=== PATIENT | male | born 1970 | race Caucasian/White ===

== ENCOUNTER 2016-08-25 16:18 | Emergency (ER) | payer OTHER ==
[~2016-08-25] VITALS: Ht 175.3 cm; Wt 83.9 kg
[2016-08-25 16:43] VITALS: BP 120/89
[2016-08-25] MEDS ORDERED: ALPRAZOLAM 0.5 MG TABLET ONE (17:28)
[2016-08-25] MEDS ORDERED: ALPRAZOLAM 0.5 MG TABLET PO ONE (17:30)
[2016-08-26] MEDS ORDERED: LEVE500T9 PO (10:41)
[2016-08-26] MEDS ORDERED: ALPR0.25 PO (10:41)
== END 2016-08-25 17:36 | disposition home or self-care (01) ==
LOC: ER 16:23
DX: F41.9 Anxiety disorder, unspecified (principal); G89.29 Other chronic pain; F20.9 Schizophrenia, unspecified
CPT/HCPCS: 99282; A4606; Z7610

== ENCOUNTER 2016-08-26 10:08 | Emergency (ER) | payer MEDICAID, MEDICARE, OTHER ==
[~2016-08-26] VITALS: Ht 175.3 cm; Wt 83.9 kg
[2016-08-26 10:08] VITALS: BP 103/74
[2016-08-26] MEDS ORDERED: LEVE500T9 PO (10:41)
[2016-08-26] MEDS ORDERED: ALPR0.25 PO (10:41)
[2016-08-26] MEDS ORDERED: ALPRAZOLAM 0.5 MG TABLET PO ONE (11:00)
== END 2016-08-26 10:45 | disposition home or self-care (01) ==
LOC: ER 10:11
DX: Z76.0 Encounter for issue of repeat prescription (principal); Z76.5 Malingerer [conscious simulation]; F20.9 Schizophrenia, unspecified; G89.29 Other chronic pain; M79.604 Pain in right leg; F12.10 Cannabis abuse, uncomplicated; Z98.890 Other specified postprocedural states
CPT/HCPCS: 99283; A4606; Z7610

== ENCOUNTER 2016-10-30 18:01 | Emergency (ER) | payer MEDICAID, OTHER ==
[~2016-10-30] VITALS: Ht 172.7 cm; Wt 102.1 kg
[~2016-10-30 18:01] MED LIST: ALPR0.25 PO; LEVE500T9 PO
[2016-10-30 18:05] VITALS: BP 139/88
--- NOTE | 2016-10-30 20:39 | NUR ---
INFORMED BY SECURITY "PT LEFT"
== END 2016-10-30 20:40 | disposition left against medical advice (07) ==
LOC: ER 18:02
DX: Z53.21 Procedure and treatment not carried out due to patient leaving prior to being seen by health care provider (principal)
CPT/HCPCS: A4606; Z7610

== ENCOUNTER 2018-01-16 22:55 | Emergency (ER) | payer OTHER ==
[~2018-01-16] VITALS: Ht 175.3 cm; Wt 103.0 kg
[2018-01-16 23:00] VITALS: BP 147/118
== END 2018-01-16 23:18 | disposition home or self-care (01) ==
LOC: ER 22:58
DX: F41.1 Generalized anxiety disorder (principal); G89.29 Other chronic pain; F99 Mental disorder, not otherwise specified; R56.9 Unspecified convulsions; F20.9 Schizophrenia, unspecified; F12.10 Cannabis abuse, uncomplicated; F10.10 Alcohol abuse, uncomplicated; Y90.9 Presence of alcohol in blood, level not specified; Z76.0 Encounter for issue of repeat prescription; Z98.890 Other specified postprocedural states
CPT/HCPCS: A4606; Z7610

== ENCOUNTER 2018-08-28 02:43 | Emergency (ER) | payer OTHER ==
[~2018-08-28] VITALS: Ht 175.3 cm; Wt 81.6 kg
--- NOTE | 2018-08-28 02:53 | NUR ---
PT [id number] FROM [facility] C/O L ARM/L KNEE PAIN AND +SI/-HI NO PLAN. PT IS AAOX4,NOT IN RESPIRATORY DISTRESS, V/S STABLE, KEPT RESTED AND COMFORTABLE, WILL CONTINUE TO MONITOR.
--- NOTE | 2018-08-28 02:59 | NUR ---
URINE SPECIMEN COLLECTED AND SENT TO LAB.
[2018-08-28 03:05] LABS: APPEARANCE,URINE Clear (CLEAR); BILIRUBIN,URINE SMALL (NEGATIVE); BLOOD, URINE Trace-intact Ery/uL (NEGATIVE); COLOR,URINE Dark (YELLOW); KETONES,URINE 15 (NEGATIVE); LEUKOCYTE ESTERASE ,URINE Negative (NEGATIVE); NITRITE, URINE Negative (NEGATIVE); PROTEIN,URINE 30 mg/dl (NEGATIVE); UGLUCOSE Negative (NEGATIVE); UROBILINOGEN,URINE 0.2 EU/dL (0.2)
--- NOTE | 2018-08-28 03:08 | NUR ---
PT IS ON SI PRECAUTION.
--- NOTE | 2018-08-28 03:15 | NUR ---
DOMINGUEZ SINGH CRISIS TEAM AT BEDSIDE FOR EVAL.
[2018-08-28 03:17] LABS: BASOPHILS # (AUTO) 0.1 /CMM (0.0-0.2); BASOPHILS % (AUTO) 0.5 % (0.0-2.0); EOSINOPHILS % (AUTO) 0.3 % (0.0-6.0); HEMATOCRIT 44 % (39-51); LYMPHOCYTES # (AUTO) 2.2 /CMM (0.8-4.8); LYMPHOCYTES % (AUTO) 23.1 % (20.0-44.0); MEAN CORPUSCULAR HGB CONC 35 g/dl (31.0-36.0); MEAN CORPUSCULAR VOLUME 95 fL (80-96); MONOCYTES % (AUTO) 10.7 % (2.0-12.0); NEUTROPHILS # (AUTO) 6.3 /CMM (1.8-8.9); NEUTROPHILS % (AUTO) 65.4 % (43.0-81.0); PLATELET COUNT (AUTO) 260 /CMM (150-450); RED BLOOD CELL COUNT(AUTO) 4.58 MIL/uL (4.5-6.0); WHITE BLOOD COUNT (AUTO) 9.6 K/uL (4.3-11.0)
[2018-08-28 03:24] LABS: CALCIUM, SERUM 9.2 mg/dL (8.5-10.1); CREATININE 0.9 mg/dL (0.6-1.3); POTASSIUM 3.3 mmol/L (3.5-5.1)
[2018-08-28 03:24] LABS: BACTERIA,URINE None seen /HPF (None Seen); MUCUS,URINE Few /LPF (None Seen); RBC,URINE 0-2 /HPF (0-2); SQUAMOUS EPITHELIAL CELL,UR None Seen /HPF (None Seen); WBC,URINE NONE SEEN /HPF (0-3)
[2018-08-28 03:36] LABS: ALBUMIN 3.8 g/dL (3.4-5.0); BILIRUBIN,DIRECT 0.2 mg/dL (0.0-0.2); TOTAL PROTEIN, SERUM 7.7 g/dL (6.4-8.2)
[2018-08-28] MEDS ORDERED: POTASSIUM CHLORIDE 20 MEQ TAB.PRT.SR PO ONE ×2 (03:56→04:00)
--- NOTE | 2018-08-28 05:07 | NUR ---
Pt accepted to [facility] by Dr Issa. # for report [phone]. eta for ambulance 1-1.5 hrs
[2018-08-28] MEDS ORDERED: ONDANSETRON 4 MG TAB.RAPDIS ONE (05:15)
[2018-08-28] MEDS ORDERED: ONDANSETRON 4 MG TAB.RAPDIS SL ONE (05:30)
--- NOTE | 2018-08-28 05:43 | NUR ---
REPORT GIVEN TO SAMANTHA THOMAS FROM [facility] FOR SUSANNE.
[2018-08-28 07:22] VITALS: BP 103/57
== END 2018-08-28 07:23 ==
LOC: ER 02:45
DX: R45.851 Suicidal ideations (principal); F19.10 Other psychoactive substance abuse, uncomplicated; I10 Essential (primary) hypertension; E11.9 Type 2 diabetes mellitus without complications; F12.90 Cannabis use, unspecified, uncomplicated; G89.29 Other chronic pain; Z98.890 Other specified postprocedural states; Z79.899 Other long term (current) drug therapy
CPT/HCPCS: 36415; 80048; 80076; 80307; 81001; 85025; 99285; G0480; Q0162; 80305; 81000-TC

== ENCOUNTER 2018-09-01 20:43 | Emergency (ER) | payer OTHER ==
[~2018-09-01] VITALS: Ht 175.3 cm; Wt 90.7 kg
--- NOTE | 2018-09-01 21:20 | NUR ---
Note undone in EDM - 09/01/18 at 2123 by LIDIA NIC WALKED IN TO ER. AAOX4. NAD NOTED, BREATHING EVEN AND UNLABORED. AMBULATORY. CAME IN FOR SUICIDAL IDEATION, PT REPORT FEELING OF HOPELESSNESS AND DEPRESSED. PT VERBALIZES THAT HE DOES NOT WANT TO LIVE ANYMORE BY SHOOTING HIMSELF BUT NO ONE WOULD SELL HIM A GUN. DENIES HALLUCINATIONS. DENIES HI. PT STRIPPED OFF CLOTHING AND BELONGINS AND PLACED IN THE UTILITY ROOM BY THE MD DESK. PT WANDED BY SECURITY. ONE ON ONE SITTER AT BEDSIDE PART OF SUICIE PRECAUTION. AT BEDSIDE FOR EVAL
--- NOTE | 2018-09-01 21:23 | NUR ---
NIC WALKED IN TO ER. AAOX4. NAD NOTED, BREATHING EVEN AND UNLABORED. AMBULATORY. CAME IN FOR SUICIDAL IDEATION, PT REPORT FEELING OF HOPELESSNESS AND DEPRESSED. PT VERBALIZES THAT HE DOES NOT WANT TO LIVE ANYMORE BY SHOOTING HIMSELF BUT NO ONE WOULD SELL HIM A GUN. DENIES HALLUCINATIONS. DENIES HI. PT STRIPPED OFF CLOTHING AND BELONGINS AND PLACED IN THE UTILITY ROOM BY THE MD DESK. PT WANDED BY SECURITY. ONE ON ONE SITTER AT BEDSIDE PART OF SUICIE PRECAUTION. AT BEDSIDE FOR EVAL
[2018-09-01 21:26] LABS: BASOPHILS % (AUTO) 0.2 % (0.0-2.0); EOSINOPHILS % (AUTO) 0.8 % (0.0-6.0); HEMATOCRIT 40 % (39-51); HEMOGLOBIN 13.6 g/dL (13.5-17.5); LYMPHOCYTES # (AUTO) 1.8 /CMM (0.8-4.8); MEAN CORPUSCULAR HGB CONC 34 g/dl (31.0-36.0); MEAN CORPUSCULAR VOLUME 97 fL (80-96); MONOCYTES # (AUTO) 0.4 /CMM (0.1-1.30); MONOCYTES % (AUTO) 8.1 % (2.0-12.0); NEUTROPHILS # (AUTO) 3.2 /CMM (1.8-8.9); NEUTROPHILS % (AUTO) 57.9 % (43.0-81.0); PLATELET COUNT (AUTO) 190 /CMM (150-450); RED BLOOD CELL COUNT(AUTO) 4.09 MIL/uL (4.5-6.0); WHITE BLOOD COUNT (AUTO) 5.4 K/uL (4.3-11.0)
--- NOTE | 2018-09-01 21:35 | NUR ---
PROVIDED WITH FOOD
[2018-09-01 21:38] LABS: CALCIUM, SERUM 8.8 mg/dL (8.5-10.1); CARBON DIOXIDE 27 mmol/L (21-32); CHLORIDE 100 mmol/L (98-107); CREATININE 0.8 mg/dL (0.6-1.3); GLUCOSE 110 mg/dL (74-106); POTASSIUM 4.4 mmol/L (3.5-5.1); SODIUM SERUM 137 mmol/L (136-145); UREA NITROGEN, BLOOD 6 mg/dL (7-18)
[2018-09-01 21:50] LABS: APPEARANCE,URINE Clear (CLEAR); BILIRUBIN,URINE Negative (NEGATIVE); BLOOD, URINE Negative Ery/uL (NEGATIVE); COLOR,URINE Yellow (YELLOW); KETONES,URINE Negative (NEGATIVE); LEUKOCYTE ESTERASE ,URINE Negative (NEGATIVE); NITRITE, URINE Negative (NEGATIVE); PH,URINE 5.5 (5.0-8.0); PROTEIN,URINE Negative (NEGATIVE); UGLUCOSE Negative (NEGATIVE); UROBILINOGEN,URINE 0.2 EU/dL (0.2)
[2018-09-01 21:52] LABS: ALANINE AMINOTRANSFERASE 23 U/L (12-78); ALBUMIN 3.7 g/dL (3.4-5.0); ALCOHOL, BLOOD 160 mg/dL (0-0); ALKALINE PHOSPHATASE 72 U/L (46-116); ASPARTATE AMINOTRANSFERASE 19 U/L (15-37); BILIRUBIN,DIRECT 0.1 mg/dL (0.0-0.2); BILIRUBIN,TOTAL 0.5 mg/dL (0.2-1.0); TOTAL PROTEIN, SERUM 7.1 g/dL (6.4-8.2)
[2018-09-01 21:53] LABS: ACETAMINOPHEN < 5 ug/ml (10-30); SALICYLATE 1.6 mg/dL (2.8-20.0)
--- NOTE | 2018-09-01 23:50 | NUR ---
mary Johnsonw at bedside for eval
--- NOTE | 2018-09-02 01:57 | NUR ---
PT ACCEPTED TO [facility] ACCEPTING MD: DR. SCALES NUMBER FOR REPORT: [phone] EXT [phone]
--- NOTE | 2018-09-02 02:05 | NUR ---
CALLED FANI FOR TRANSPORTATION [facility]. ETA 0340. TRIP NUMBER [id number]
--- NOTE | 2018-09-02 02:15 | NUR ---
REPORT GIVEN TO SAMANTHA ZAPATA OF [facility] FOR SUSANNE. PT GOING TO [address] BED A
--- NOTE | 2018-09-02 03:22 | NUR ---
GAVE REPORT TO CONOR Tsai FOR TRANSPORTATION SUSANNE
--- NOTE | 2018-09-02 03:29 | NUR ---
LISET AT BEDSIDE FOR PT P/U TO BE TRANSPORTED TO [facility]. NAD NOTED. PT IS IN STABLE CONDITION FOR TRANSPORT.
[2018-09-02 03:43] VITALS: BP 115/53
== END 2018-09-02 03:44 ==
LOC: ER 20:50
DX: R45.851 Suicidal ideations (principal); F10.10 Alcohol abuse, uncomplicated; G40.909 Epilepsy, unspecified, not intractable, without status epilepticus; I10 Essential (primary) hypertension; E11.9 Type 2 diabetes mellitus without complications; F20.9 Schizophrenia, unspecified; F12.10 Cannabis abuse, uncomplicated; F29 Unspecified psychosis not due to a substance or known physiological condition; R45.1 Restlessness and agitation; F13.10 Sedative, hypnotic or anxiolytic abuse, uncomplicated; Y90.2 Blood alcohol level of 40-59 mg/100 ml; Z98.890 Other specified postprocedural states
CPT/HCPCS: 36415 ×2; 80048; 80076; 80305; 80307 ×2; 80329; 81001; 85025; 99285; G0480; 81000-TC

== ENCOUNTER 2018-09-06 23:49 | Emergency (ER) | payer OTHER ==
[~2018-09-06] VITALS: Ht 175.3 cm; Wt 90.7 kg
--- NOTE | 2018-09-06 23:53 | NUR ---
[id number] FROM STREET C/O SI WITH PLAN TO SHOOT HIMSELF. DENIES HI OR HALLUCINATIONS. ADMITS TO ETOH, LAST DRINK IN AM. PT AAOX4. RESPIRATIONS EVEN AND UNLABORED. SKIN WARM AND INTACT. ABLE TO AMBULATE WITH STEADY GAIT. CALM AND COOPERATIVE. NO ACUTE DISTRESS NOTED AT THIS TIME.
--- NOTE | 2018-09-06 23:54 | NUR ---
PT PLACED IN GOWN AND BELONGINGS REMOVED FROM ROOM AND BROUGHT UP TO NURSES STATION. CALLED SECURITY FOR WANDING.
--- NOTE | 2018-09-07 00:14 | NUR ---
TRANSPORTATION ENGINEER AT BEDSIDE FOR BLOOD DRAW
[2018-09-07 00:17] LABS: BASOPHILS % (AUTO) 0.2 % (0.0-2.0); EOSINOPHILS % (AUTO) 0.3 % (0.0-6.0); HEMATOCRIT 38 % (39-51); HEMOGLOBIN 13.3 g/dL (13.5-17.5); LYMPHOCYTES # (AUTO) 1.5 /CMM (0.8-4.8); LYMPHOCYTES % (AUTO) 18.9 % (20.0-44.0); MEAN CORPUSCULAR HGB CONC 35 g/dl (31.0-36.0); MEAN CORPUSCULAR VOLUME 96 fL (80-96); MONOCYTES % (AUTO) 13.6 % (2.0-12.0); NEUTROPHILS # (AUTO) 5.2 /CMM (1.8-8.9); PLATELET COUNT (AUTO) 140 /CMM (150-450); RED BLOOD CELL COUNT(AUTO) 3.96 MIL/uL (4.5-6.0); WHITE BLOOD COUNT (AUTO) 7.7 K/uL (4.3-11.0)
[2018-09-07 00:25] LABS: CALCIUM, SERUM 8.4 mg/dL (8.5-10.1); CREATININE 1.1 mg/dL (0.6-1.3); POTASSIUM 3.9 mmol/L (3.5-5.1)
[2018-09-07 00:31] LABS: ALBUMIN 3.6 g/dL (3.4-5.0); BILIRUBIN,DIRECT 0.1 mg/dL (0.0-0.2); BILIRUBIN,TOTAL 0.3 mg/dL (0.2-1.0); SALICYLATE 1.6 mg/dL (2.8-20.0)
--- NOTE | 2018-09-07 00:38 | NUR ---
URINE COLLECTED AND SENT TO LAB
[2018-09-07 00:48] LABS: APPEARANCE,URINE Clear (CLEAR); BILIRUBIN,URINE Negative (NEGATIVE); BLOOD, URINE Negative Ery/uL (NEGATIVE); COLOR,URINE Yellow (YELLOW); KETONES,URINE Negative (NEGATIVE); LEUKOCYTE ESTERASE ,URINE Negative (NEGATIVE); NITRITE, URINE Negative (NEGATIVE); PH,URINE 5.5 (5.0-8.0); PROTEIN,URINE Negative (NEGATIVE); UGLUCOSE Negative (NEGATIVE); UROBILINOGEN,URINE 0.2 EU/dL (0.2)
--- NOTE | 2018-09-07 01:52 | NUR ---
ART, NETWORK TECHNOLOGY INSTRUCTOR AT BEDSIDE FOR EVALUATION
--- NOTE | 2018-09-07 04:34 | NUR ---
PT RESTING COMFORTABLY IN BED. VITAL SIGNS STABLE. SITTER AT BEDSIDE. WILL CONTINUE TO MONITOR
--- NOTE | 2018-09-07 06:53 | NUR ---
PT RESTING COMFORTABLY IN BED. VITAL SIGNS STABLE. NO ACUTE DISTRESS NOTED AT THIS TIME. WILL CONTINUE TO MONITOR Addendum: 09/07/18 at 0653 by MADAY SITTER AT BEDSIDE
--- NOTE | 2018-09-07 09:52 | NUR ---
SPOKE WITH JENNY, NONDESTRUCTIVE TESTER FROM [facility] ([phone]) AND GAVE REPORT. RECEIVING PSYCH PHYSICIAN IS DR LAWTON
--- NOTE | 2018-09-07 11:01 | NUR ---
CALLED [facility] [phone] TALKED WITH SEBASTIEN Chowdary TRIP NUMBER IS [id number]
[2018-09-07 12:51] VITALS: BP 131/80
--- NOTE | 2018-09-07 12:54 | NUR ---
PATIENT TO BE TRANSFERRED TO [facility]. TRANSFER INFORMATION PROVIDED TO AMBULANCE TRANSPORTATION. PATIENT LEFT UNIT VIA GURNEY IN STABLE CONDITION. BREATHING EVEN AND UNLABORED. NO ACUTE DISTRESS. DENIES ANY PAIN OR DISCOMFORT. BELONGINGS SENT WITH PATIENT. NO NEW SKIN BREAKDOWN ON DISCHARGE. MD AWARE OF TRANSFER
== END 2018-09-07 12:59 | disposition short-term general hospital (02) ==
LOC: ER 23:50
DX: R45.851 Suicidal ideations (principal); I10 Essential (primary) hypertension; E11.9 Type 2 diabetes mellitus without complications; G89.29 Other chronic pain; Z98.890 Other specified postprocedural states; Z79.899 Other long term (current) drug therapy
CPT/HCPCS: 36415; 80048; 80076; 80305; 80307; 80329; 81001; 85025; 99285; G0480; 81000-TC

== ENCOUNTER 2021-06-11 10:57 | Emergency (ER) | payer MEDICAID, OTHER ==
[~2021-06-11] VITALS: Ht 175.3 cm; Wt 95.3 kg
--- NOTE | 2021-06-11 11:10 | NUR ---
BIBS CC/O AMNESIA, PT STATED HE HAS OTHER OCMPLAINTS BUT HE CANNOT REMEMBER. PLACED COMFORTABLY IN BED. VITALS CHECKED.
--- NOTE | 2021-06-11 11:17 | NUR ---
URINE SPECIMEN SENT TO LAB
--- NOTE | 2021-06-11 11:19 | NUR ---
PATIENT SMELLED LIKE ALCOHOL. UPON INTERVIEW HE SAID THAT HE DRANK SEVERAL BOTTLES OF BEER BUT CANT REMEMBER HOW MANY.
--- NOTE | 2021-06-11 11:21 | NUR ---
SEEN BY DR NOE AT BEDSIDE
[2021-06-11 11:59] LABS: BASOPHILS # (AUTO) 0.1 K/uL (0.0-0.2); BASOPHILS % (AUTO) 0.5 % (0.0-2.0); EOSINOPHILS % (AUTO) 0.2 % (0.0-6.0); HEMATOCRIT 43 % (39-51); HEMOGLOBIN 14.8 g/dL (13.5-17.5); LYMPHOCYTES # (AUTO) 1.9 K/uL (0.8-4.8); LYMPHOCYTES % (AUTO) 13.4 % (20.0-44.0); MEAN CORPUSCULAR HGB CONC 34 g/dl (31.0-36.0); MEAN CORPUSCULAR VOLUME 92 fL (80-96); MONOCYTES # (AUTO) 0.8 K/uL (0.1-1.30); MONOCYTES % (AUTO) 5.7 % (2.0-12.0); NEUTROPHILS # (AUTO) 11.6 K/uL (1.8-8.9); NEUTROPHILS % (AUTO) 80.2 % (43.0-81.0); PLATELET COUNT (AUTO) 327 K/uL (150-450); RED BLOOD CELL COUNT(AUTO) 4.68 MIL/uL (4.5-6.0); WHITE BLOOD COUNT (AUTO) 14.5 K/uL (4.3-11.0)
[2021-06-11 12:27] LABS: ALBUMIN 3.9 g/dL (3.4-5.0); BILIRUBIN,DIRECT 0.1 mg/dL (0.0-0.2); BILIRUBIN,TOTAL 0.4 mg/dL (0.2-1.0); CALCIUM, SERUM 8.7 mg/dL (8.5-10.1); CREATININE 1.1 mg/dL (0.6-1.3); TOTAL PROTEIN, SERUM 7.9 g/dL (6.4-8.2)
--- NOTE | 2021-06-11 14:53 | NUR ---
SS Consult: SS Consult requested for alcohol abuse, & homelessness. The pt. is a 50-year old male who presents to the ED with C/O amnesia for the past few hours and intoxicated. TONIE met with pt. at bedside. The pt. appears disheveled, is A&O X4 and makes good eye contact. Pt.'s has depressed mood & flat affect. The pt. states he had not drank in a long time and decided to drink some beers and states he lost his backpack and cellphone. Patient tested positive for alcohol use. Pt. denies SI/HI and denies hallucinations. food production worker provided support with motivational interviewing, education regarding alcohol dependence, brief intervention and offered referral to treatment. Pt. declined referralfor rehab and refused addiction resources. TONIE explored pt.'s living situation. Pt. states he has been homeless for a "long time" and could not specify time. Pt. stated he has been stays "anywhere". SW explored pt.'s mental health Hx. Pt. states she has been diagnosed with Schizophrenia. SW offered referral for mental health services and pt. refused. Pt. states he is ambulatory and independent with her ADL's. TONIE explored pt.'s support system. Pt. states his AA sponsor is his support system. Pt. stated he called said friend to pick him up and they culd not help him. Plan: TONIE offered pt. fdc placement and pt. refused. Patient stated, "I just want to go try to find my backpack and cell phone. SW provided patient with TAP card and pt. accepted it. Pt. refused to sign homeless waiver. TONIE provided pt. with homeless, mental health and addictions resources and pt. refused them : resources offered include: Year-round shelters: [facility] [address] [place] [place] [address] ; [facility] [address] [place] [address]; [place] [facility] Yxfyees1385 [facility]. [facility] [address] Winter Shelters: SPA 2 | [facility] Sarahvider: [place] Address: Confidential (call for location ) Population Served: Coed # of Beds: 57 SPA 4 | [facility] Provider: Home at Last Address: [address] [facility], [address] # of Beds: 49 Population Served: Coed SPA 6 | [facility] Provider: Home at Last Address: [address] [facility], [address] # of Beds: 49 Population Served: Coed Hermelindo [facility] Provider: Ravi Khan ALKristen Address: [address] [facility] [address] # of Beds: 20 Population Served: Women SERGIO Facility Provider: Home at Last Address: [address] [facility] [address] # of Beds: 30 Population Served: Women SPA 8 | [facility] Library Provider: Julián Address: [address] [facility] [address] # of Beds: 65 Population Served: Coed Hygiene: [place] [facility]: [address] [facility] [place] ; [facility] [address] [facility] ; [facility] [address] [facility] . Food Resources: [place] [facility] at [facility]- [address] [facility]; Meet Each Need with Dignity ([facility]) [address] [facility]; [facility] Food Pantry [address] [facility]; [facility] [address] [facility] [facility]. Mental Health resources provided: [facility] [address] [place] [address] ; [facility] Mental Health Center[facility] [address] [facility] [address], [place] [address] ; Elsy [facility] [address] [place] [address] ; [facility] [place], [place] [id number] Healthcare Clinics: [facility] [address] [facility], [address] [place]. [place] ; [facility] [address] [facility] [address] [place] [address]; [facility] [address] [place] [address] [phone] Counseling--Outpatient [facility] [address] [facility], [place] [address] (Specializes in in-depth psychotherapy for emotional distress: anxiety, depression, interpersonal conflicts, life transitions, childhood abuse) [facility] [address] [place] [address] (Assist with solving problem marital difficulties, separation & divorce, aging parents, & grief, chronic & terminal illness) [facility] [address] [place] [address] (Deal with loss & grief, anxiety, marital difficulties) Homebound/Mental Health Services [address] [facility], [address] [place] [address] (Provide in-home mental services to people who are incapable of leaving their homes) Organization for Needs of the Elderly Senior Service/Resource Center [address] [facility] [place] [address] [facility] [address] [facility]. [place], [place] [id number] PSYCHIATRIC OUTPATIENT SERVICES [facility] Partial Hospitalization and Intensive Outpatient Program (Managed Care and [place] Only)[address] [facility]. [facility] [phone] [facility] Partial Hospitalization and Outpatient Kiowinz36845 [facility]. [address] [place], [place] [phone] [facility] Health [place] Ehg[address] [facility] [address] [place], [place] [phone] [facility] Partial Hospitalization and Outpatient Tsmttrj46551 [facility] Kvng, [phone] Substance Abuse resources provided included: [facility] Substance Abuse Self-Helpline ([facility]) ; CRI -HELP [address] [facility]. [place] [address] ; [facility] [facility] [place] [address] [facility] [address] ; [facility] Rehabilitation Program [address] [place] [address] ; [facility]ically [facility] [address] [facility] [address] ; [facility] 4940 [facility] [phone] ; Rosi [facility] [place] [address] [facility] [phone] ; [facility] Substance Abuse Helpline([facility] ; [facility] ; [facility] [place]; [facility]; Cri-Help [place]; I-[facility] Saúl axel; [facility] [place]; [place]; [facility] [place]; [facility]'s [place] [place]; Alcoholics Anonymous -SFV; Sd-Rfkv-Bnawhxf ; Marijuana Anonymous -SFV; Narcotics Anonymous www.na.org;
--- NOTE | 2021-06-11 15:00 | NUR ---
PATIENT BEEN WANTING TO LEAVE
[2021-06-11 15:11] LABS: BILIRUBIN,URINE NEGATIVE (NEGATIVE); COLOR,URINE YELLOW (YELLOW); LEUKOCYTE ESTERASE ,URINE NEGATIVE (NEGATIVE); NITRITE, URINE NEGATIVE (NEGATIVE); PH,URINE 5.5 (5.0-8.0); PROTEIN,URINE NEGATIVE (NEGATIVE); UGLUCOSE 100 MG/DL mg/dL (NEGATIVE); UROBILINOGEN,URINE 0.2 EU/dL (0.2)
--- NOTE | 2021-06-11 15:20 | NUR ---
Patient discharged to home in stable condition. Written and verbal after care instructions given. Patient verbalizes understanding of instruction.
[2021-06-11 15:25] VITALS: BP 107/79
== END 2021-06-11 15:26 | disposition home or self-care (01) ==
LOC: ER 10:59
DX: F10.129 Alcohol abuse with intoxication, unspecified (principal); I10 Essential (primary) hypertension; E11.9 Type 2 diabetes mellitus without complications; G89.29 Other chronic pain; F20.9 Schizophrenia, unspecified; M19.90 Unspecified osteoarthritis, unspecified site; Z86.69 Personal history of other diseases of the nervous system and sense organs; Z79.899 Other long term (current) drug therapy; Y90.6 Blood alcohol level of 120-199 mg/100 ml
CPT/HCPCS: 36415; 80048-TC; 80076-TC; 85025-TC; G0480

== ENCOUNTER 2021-06-11 21:27 | Emergency (ER) | payer MEDICAID ==
[~2021-06-11] VITALS: Ht 170.2 cm; Wt 78.5 kg
[2021-06-11] MEDS ORDERED: OLANZAPINE 10 MG VIAL IM ONE ×2 (21:56→22:00)
[2021-06-11] MEDS ORDERED: diphenhydrAMINE HCL 50 MG/ML VIAL ONE (21:56)
[2021-06-11] MEDS ORDERED: diphenhydrAMINE HCL 50 MG/ML VIAL IM ONE (22:00)
--- NOTE | 2021-06-11 22:00 | NUR ---
BIBRA 881 FOUND IN FRONT OF RESTURANT C/O SI WITH NO PLAN, -HI. ON HOLD BY PD. PATIENT TAKEN TO ER BED 13. PATIENT AMBULATED TO BED WITH [employer] ESC[employer]. PATIENT A/O X 3, RR EVEN AND UNLABORED, NO SOB NOTED. PATIENT CONNECTED TO MONITORS. PLACED IN HOSPITAL GOWN, BELONGINGS TAKEN PLACED IN LOCKER. WILL CONTINUE TO MONITOR.
--- NOTE | 2021-06-11 22:21 | NUR ---
ROSAMARIA COLLECTED AND SENT TO LAB
[2021-06-11 22:30] LABS: BASOPHILS # (AUTO) 0.1 K/uL (0.0-0.2); BASOPHILS % (AUTO) 0.9 % (0.0-2.0); EOSINOPHILS % (AUTO) 0.5 % (0.0-6.0); HEMATOCRIT 42 % (39-51); HEMOGLOBIN 14.2 g/dL (13.5-17.5); LYMPHOCYTES # (AUTO) 2.7 K/uL (0.8-4.8); LYMPHOCYTES % (AUTO) 23.8 % (20.0-44.0); MEAN CORPUSCULAR HGB CONC 34 g/dl (31.0-36.0); MEAN CORPUSCULAR VOLUME 93 fL (80-96); MONOCYTES # (AUTO) 0.9 K/uL (0.1-1.30); MONOCYTES % (AUTO) 8.3 % (2.0-12.0); NEUTROPHILS # (AUTO) 7.5 K/uL (1.8-8.9); NEUTROPHILS % (AUTO) 66.5 % (43.0-81.0); PLATELET COUNT (AUTO) 331 K/uL (150-450); RED BLOOD CELL COUNT(AUTO) 4.49 MIL/uL (4.5-6.0); WHITE BLOOD COUNT (AUTO) 11.3 K/uL (4.3-11.0)
[2021-06-11 22:47] LABS: CALCIUM, SERUM 8.5 mg/dL (8.5-10.1); POTASSIUM 3.9 mmol/L (3.5-5.1)
[2021-06-11 22:52] LABS: ALBUMIN 3.7 g/dL (3.4-5.0); BILIRUBIN,DIRECT 0.1 mg/dL (0.0-0.2); BILIRUBIN,TOTAL 0.5 mg/dL (0.2-1.0); TOTAL PROTEIN, SERUM 7.5 g/dL (6.4-8.2)
[2021-06-12 00:25] LABS: BILIRUBIN,URINE NEGATIVE (NEGATIVE); COLOR,URINE YELLOW (YELLOW); LEUKOCYTE ESTERASE ,URINE NEGATIVE (NEGATIVE); NITRITE, URINE NEGATIVE (NEGATIVE); PH,URINE 5.5 (5.0-8.0); PROTEIN,URINE NEGATIVE (NEGATIVE); UGLUCOSE >=1000 mg/dL (NEGATIVE); UROBILINOGEN,URINE 0.2 EU/dL (0.2)
[2021-06-12 07:26] VITALS: BP 129/75
--- NOTE | 2021-06-12 07:32 | NUR ---
fax hold to target worker
--- NOTE | 2021-06-12 07:40 | NUR ---
TONIE faxed clinicals to [facility] tel:[phone] FAX:[phone] for psychiatric treatment aspt. is on a 5150 hold for S
--- NOTE | 2021-06-12 09:01 | NUR ---
SW called [facility] tel:[phone] and spoke to intake for update regarding possible admission. Intake stated that they have received clinicals and clinicals are being reviewed. Per Intake they should b calling TONIE back with update within the hour.
--- NOTE | 2021-06-12 09:49 | NUR ---
[facility], [place] [address] [address] Bernadine Griffith. Patient will be placed in 2nd fllor of the unit in room#220-1. Nurse to nurse report to be caleld in at [phone]. SW notified auto emissions technician to arrange transport.
--- NOTE | 2021-06-12 10:07 | NUR ---
REPORT GIVEN TO BILL FOR SUSANNE, STATED THAT SERUM ALCOHOL LEVEL NEEDS TO BE BELOW 100 PRIOR TO TRANSPORTATION.
[2021-06-12] MEDS ORDERED: LEVETIRACETAM (250 MG) 250 MG TABLET PO ONE ×2 (11:30→11:31)
--- NOTE | 2021-06-12 14:12 | NUR ---
[facility] CALLED FOR TRANSPORT ETA 15 MINS.
--- NOTE | 2021-06-12 14:25 | NUR ---
report given to [facility] transport for kayla
--- NOTE | 2021-06-12 14:32 | NUR ---
[facility] AT BEDSIDE FOR TRANSPORT.
== END 2021-06-12 14:35 ==
LOC: ER 21:28
DX: R45.851 Suicidal ideations (principal); F20.9 Schizophrenia, unspecified; I10 Essential (primary) hypertension; Z20.822 Contact with and (suspected) exposure to COVID-19; E11.65 Type 2 diabetes mellitus with hyperglycemia; F10.129 Alcohol abuse with intoxication, unspecified; Y90.8 Blood alcohol level of 240 mg/100 ml or more; G40.909 Epilepsy, unspecified, not intractable, without status epilepticus; Z79.899 Other long term (current) drug therapy
CPT/HCPCS: 36415 ×2; 80048; 80076; 80143; 80307; 80320 ×2; 81003; 85025; 87426; 96372 ×2; 99285; C9803; J1200; J3490; G0480

== ENCOUNTER 2021-07-07 07:51 | Emergency (ER) | payer MEDICAID ==
[~2021-07-07] VITALS: Ht 175.3 cm; Wt 95.3 kg
--- NOTE | 2021-07-07 07:51 | NUR ---
PT BIB SELF C/O DEPRESSION REQUESTING VOLUNTARY PSYCH ADMISSION. SECONDARY CC: RECTAL PAIN X 2 DAYS. PT IS AAOX4, NOT IN RESPIRATORY DISTRESS, HOOKED TO V/S MONITOR, KEPT RESTED AND COMFORTABLE. WILL CONTINUE TO MONITOR.
--- NOTE | 2021-07-07 08:00 | NUR ---
URINAL GIVEN UNABLE TO PROVIDE URINE SPECIMEN THIS TIME.
--- NOTE | 2021-07-07 08:03 | NUR ---
SEEN AND EXAMINED BY .
--- NOTE | 2021-07-07 08:07 | NUR ---
ER PHLEB AT BEDSIDE FOR BLOOD DRAW.
[2021-07-07 08:18] LABS: BASOPHILS # (AUTO) 0.1 K/uL (0.0-0.2); BASOPHILS % (AUTO) 0.5 % (0.0-2.0); EOSINOPHILS % (AUTO) 1.1 % (0.0-6.0); HEMATOCRIT 41 % (39-51); HEMOGLOBIN 14.2 g/dL (13.5-17.5); LYMPHOCYTES # (AUTO) 1.5 K/uL (0.8-4.8); LYMPHOCYTES % (AUTO) 15.5 % (20.0-44.0); MEAN CORPUSCULAR HGB CONC 35 g/dl (31.0-36.0); MEAN CORPUSCULAR VOLUME 92 fL (80-96); MONOCYTES # (AUTO) 0.6 K/uL (0.1-1.30); MONOCYTES % (AUTO) 6.7 % (2.0-12.0); NEUTROPHILS # (AUTO) 7.3 K/uL (1.8-8.9); NEUTROPHILS % (AUTO) 76.2 % (43.0-81.0); PLATELET COUNT (AUTO) 262 K/uL (150-450); RED BLOOD CELL COUNT(AUTO) 4.47 MIL/uL (4.5-6.0); WHITE BLOOD COUNT (AUTO) 9.5 K/uL (4.3-11.0)
--- NOTE | 2021-07-07 08:25 | NUR ---
CALLED [facility] 6 HOURS. LOOK FOR HYPOTENSION DO EKG LOOK FOR PROLONGED QT NO CHARCOL NEEDED DO LABS TYLENOL ASA CMP PER KAY .
[2021-07-07 08:32] LABS: CALCIUM, SERUM 9.3 mg/dL (8.5-10.1); CARBON DIOXIDE 23 mmol/L (21-32); CHLORIDE 97 mmol/L (98-107); CREATININE 1.3 mg/dL (0.6-1.3); GLUCOSE 225 mg/dL (74-106); POTASSIUM 4.1 mmol/L (3.5-5.1); SODIUM SERUM 133 mmol/L (136-145); UREA NITROGEN, BLOOD 15 mg/dL (7-18)
[2021-07-07 08:37] LABS: ALANINE AMINOTRANSFERASE 27 U/L (12-78); ALKALINE PHOSPHATASE 133 U/L (46-116); ASPARTATE AMINOTRANSFERASE 11 U/L (15-37); BILIRUBIN,DIRECT 0.1 mg/dL (0.0-0.2); BILIRUBIN,TOTAL 0.9 mg/dL (0.2-1.0); TOTAL PROTEIN, SERUM 8.1 g/dL (6.4-8.2)
[2021-07-07 08:40] LABS: ACETAMINOPHEN 0 ug/ml (10-30); ALCOHOL, BLOOD < 3 mg/dL (0-0)
--- NOTE | 2021-07-07 08:59 | NUR ---
URINE SPECIMEN COLLECTED AND SENT TO LAB.
[2021-07-07 09:13] LABS: BILIRUBIN,URINE SMALL (NEGATIVE); COLOR,URINE DARK YELLOW (YELLOW); LEUKOCYTE ESTERASE ,URINE NEGATIVE (NEGATIVE); NITRITE, URINE NEGATIVE (NEGATIVE); PROTEIN,URINE TRACE mg/dl (NEGATIVE); UGLUCOSE NEGATIVE (NEGATIVE); UROBILINOGEN,URINE 0.2 EU/dL (0.2)
[2021-07-07 10:08] LABS: BACTERIA,URINE Rare /HPF (None Seen); RBC,URINE 0-2 /HPF (0-2); URIC ACID CRYSTALS,URINE Many /HPF (None Seen); WBC,URINE 0-2 /HPF (0-3)
--- NOTE | 2021-07-07 13:51 | NUR ---
BS 208, AWARE
--- NOTE | 2021-07-07 13:51 | NUR ---
PATIENT AWAKE, AAOX3, BREATHING EVEN AND NON LABORED
[2021-07-07] MEDS ORDERED: METFORMIN 500 MG TABLET ONE ×2 (13:58→17:28)
[2021-07-07] MEDS ORDERED: GABA300C PO (13:59)
[2021-07-07] MEDS ORDERED: DAPA5TAB PO (13:59)
[2021-07-07] MEDS ORDERED: INSU100V7 SQ (13:59)
[2021-07-07] MEDS ORDERED: ESCI10TA PO (13:59)
[2021-07-07] MEDS ORDERED: QUET100T PO (13:59)
[2021-07-07] MEDS ORDERED: LISI20TA30 PO (13:59)
[2021-07-07] MEDS ORDERED: CLON0.5T4 PO (13:59)
[2021-07-07] MEDS ORDERED: SITA100T PO (13:59)
[2021-07-07] MEDS ORDERED: ATOR10TA PO (13:59)
[2021-07-07] MEDS: METFORMIN 500 MG TABLET PO SCH ×2 (14:01→17:30)
--- NOTE | 2021-07-07 16:30 | NUR ---
CLINICALS FAXED TO [facility].
[2021-07-07] MEDS ORDERED: INSU100I26 SQ (17:47)
--- NOTE | 2021-07-08 08:52 | NUR ---
CALLED [facility] HUFFMAN AND WAS NOTIFIED THAT THE PT'S CLINICAL PACKET IS BEING REVIEWED BY YOGESH FREITAS
--- NOTE | 2021-07-08 10:17 | NUR ---
Followed-up with [facility], awaiting for feedback.
[2021-07-08] MEDS ORDERED: METFORMIN 500 MG TABLET ONE (11:01)
[2021-07-08] MEDS: METFORMIN 500 MG TABLET PO SCH (11:30)
--- NOTE | 2021-07-08 12:20 | NUR ---
Pt. accepted to [facility] under Dr. Carbone. Call and report to unit 2 [[phone]].
--- NOTE | 2021-07-08 12:43 | NUR ---
CALLED [facility] AND SET UP BLS TRANSPORT ETA 1400
[2021-07-08 13:26] VITALS: BP 133/66
--- NOTE | 2021-07-08 14:32 | NUR ---
TRANPORTATION ARRIVED TO TAKE PT IS [facility]. PT TRANPORTED TO FACILITY IN STABLE CONDITION.
== END 2021-07-08 16:31 ==
LOC: ER 07:55
DX: R45.851 Suicidal ideations (principal); T42.6X2A Poisoning by other antiepileptic and sedative-hypnotic drugs, intentional self-harm, initial encounter; Y92.89 Other specified places as the place of occurrence of the external cause; F19.10 Other psychoactive substance abuse, uncomplicated; G40.909 Epilepsy, unspecified, not intractable, without status epilepticus; E11.65 Type 2 diabetes mellitus with hyperglycemia; Z79.84 Long term (current) use of oral hypoglycemic drugs; I10 Essential (primary) hypertension; F41.9 Anxiety disorder, unspecified; F10.10 Alcohol abuse, uncomplicated; F20.9 Schizophrenia, unspecified; Z79.899 Other long term (current) drug therapy; R00.0 Tachycardia, unspecified; F32.A Depression, unspecified
CPT/HCPCS: 36415; 80048; 80076; 80143; 80307; 80320; 81001; 82962 ×2; 83735; 84484 ×2; 85025; 87426; 93005; 99285; C9803; G0480

== ENCOUNTER 2021-08-15 04:42 | Emergency (ER) | payer MEDICAID ==
[~2021-08-15] VITALS: Ht 175.3 cm; Wt 99.8 kg
[~2021-08-15 04:42] MED LIST changes: -ALPR0.25 PO; +ATOR10TA PO; +CLON0.5T4 PO; +DAPA5TAB PO; +ESCI10TA PO; +GABA300C PO; +INSU100I26 SQ; +INSU100V7 SQ; +LISI20TA30 PO; +QUET100T PO; +SITA100T PO
--- NOTE | 2021-08-15 04:59 | NUR ---
PATIENT BIBSELF C/O +SI WITH NO PLAN, WANTING VOL PSYCH ADMIT. PATIENT IS A/O X 4, RR EVEN AND UNLABORED, VSS, NO ACUTE DISTRESS NOTED. PATIENT TAKEN TO ER BED 18. WILL CONTINUE TO MONITOR.
--- NOTE | 2021-08-15 05:00 | NUR ---
SECURITY AT PT'S BEDSIDE FOR WANDING. SAFETY MEASURES IN PLACE
--- NOTE | 2021-08-15 05:06 | NUR ---
URINE COLLECTED SENT TO LAB
--- NOTE | 2021-08-15 05:06 | NUR ---
SAULID COLLECTED SENT TO LAB
--- NOTE | 2021-08-15 05:14 | NUR ---
PHARMACIST PER DIEM AT PT'S BEDSIDE
[2021-08-15 05:29] LABS: BASOPHILS # (AUTO) 0.1 K/uL (0.0-0.2); BASOPHILS % (AUTO) 1.3 % (0.0-2.0); EOSINOPHILS % (AUTO) 6.4 % (0.0-6.0); HEMATOCRIT 37 % (39-51); HEMOGLOBIN 13.1 g/dL (13.5-17.5); LYMPHOCYTES # (AUTO) 1.7 K/uL (0.8-4.8); LYMPHOCYTES % (AUTO) 34.5 % (20.0-44.0); MEAN CORPUSCULAR HGB CONC 35 g/dl (31.0-36.0); MEAN CORPUSCULAR VOLUME 90 fL (80-96); MONOCYTES # (AUTO) 0.4 K/uL (0.1-1.30); MONOCYTES % (AUTO) 7.4 % (2.0-12.0); NEUTROPHILS # (AUTO) 2.5 K/uL (1.8-8.9); NEUTROPHILS % (AUTO) 50.4 % (43.0-81.0); PLATELET COUNT (AUTO) 249 K/uL (150-450); RED BLOOD CELL COUNT(AUTO) 4.11 MIL/uL (4.5-6.0); WHITE BLOOD COUNT (AUTO) 4.9 K/uL (4.3-11.0)
[2021-08-15 05:42] LABS: BILIRUBIN,URINE NEGATIVE (NEGATIVE); COLOR,URINE YELLOW (YELLOW); LEUKOCYTE ESTERASE ,URINE NEGATIVE (NEGATIVE); NITRITE, URINE NEGATIVE (NEGATIVE); PH,URINE 5.5 (5.0-8.0); PROTEIN,URINE NEGATIVE (NEGATIVE); UGLUCOSE NEGATIVE (NEGATIVE); UROBILINOGEN,URINE 0.2 EU/dL (0.2)
[2021-08-15 05:45] LABS: ALANINE AMINOTRANSFERASE 80 U/L (12-78); ALBUMIN 3.8 g/dL (3.4-5.0); ALKALINE PHOSPHATASE 102 U/L (46-116); ASPARTATE AMINOTRANSFERASE 64 U/L (15-37); BILIRUBIN,DIRECT 0.1 mg/dL (0.0-0.2); BILIRUBIN,TOTAL 0.4 mg/dL (0.2-1.0); CALCIUM, SERUM 8.6 mg/dL (8.5-10.1); CARBON DIOXIDE 29 mmol/L (21-32); CHLORIDE 101 mmol/L (98-107); CREATININE 0.9 mg/dL (0.6-1.3); GLUCOSE 145 mg/dL (74-106); POTASSIUM 3.5 mmol/L (3.5-5.1); SODIUM SERUM 138 mmol/L (136-145); TOTAL PROTEIN, SERUM 7.6 g/dL (6.4-8.2); UREA NITROGEN, BLOOD 12 mg/dL (7-18)
[2021-08-15 05:53] LABS: ACETAMINOPHEN 0 ug/ml (10-30); ALCOHOL, BLOOD < 3 mg/dL (0-0)
[2021-08-15 05:59] LABS: BACTERIA,URINE None seen /HPF (None Seen); RBC,URINE 0-2 /HPF (0-2); SQUAMOUS EPITHELIAL CELL,UR Rare /HPF (None Seen)
--- NOTE | 2021-08-15 07:04 | NUR ---
CLINICALS FAXED TO [facility]
--- NOTE | 2021-08-15 08:37 | NUR ---
ACCEPTED AT [facility] NIKI. ACCEPTING: DR SALAZAR # FOR REPORT: [phone]
--- NOTE | 2021-08-15 08:45 | NUR ---
REPORT GIVEN TO JEAN RN OD [facility]
--- NOTE | 2021-08-15 12:12 | NUR ---
TRANSPORT AT 1300
[2021-08-15 13:01] VITALS: BP 135/77
--- NOTE | 2021-08-15 13:02 | NUR ---
patient picked up by transport in no distress going to [facility].
== END 2021-08-15 13:02 ==
LOC: ER 04:59
DX: R45.851 Suicidal ideations (principal); F20.9 Schizophrenia, unspecified; F19.10 Other psychoactive substance abuse, uncomplicated; R74.01 Elevation of levels of liver transaminase levels; I10 Essential (primary) hypertension; Z20.822 Contact with and (suspected) exposure to COVID-19; E11.9 Type 2 diabetes mellitus without complications; G89.29 Other chronic pain; M79.604 Pain in right leg; Z79.4 Long term (current) use of insulin; Z79.899 Other long term (current) drug therapy; G40.909 Epilepsy, unspecified, not intractable, without status epilepticus
CPT/HCPCS: 36415; 80048; 80076; 80143; 80307; 80320; 81001; 85025; 87426; 99285; C9803; G0480

== ENCOUNTER 2021-10-19 10:17 | Emergency (ER) | payer MEDICAID ==
[~2021-10-19] VITALS: Ht 170.2 cm; Wt 90.7 kg
--- NOTE | 2021-10-19 10:37 | NUR ---
security at bedside for wanding.
--- NOTE | 2021-10-19 10:39 | NUR ---
covid swab collected and sent to lab.
--- NOTE | 2021-10-19 10:45 | NUR ---
Patient came in to the er c/o "I want to go to [facility] I also Lost my meds". On room air, breathing evenly and unnlabored. Kept comfortable, will continue to monitor accordingly.
[2021-10-19 11:18] LABS: BASOPHILS % (AUTO) 0.8 % (0.0-2.0); HEMATOCRIT 39 % (39-51); HEMOGLOBIN 13.5 g/dL (13.5-17.5); LYMPHOCYTES # (AUTO) 1.7 K/uL (0.8-4.8); LYMPHOCYTES % (AUTO) 29.9 % (20.0-44.0); MEAN CORPUSCULAR HGB CONC 35 g/dl (31.0-36.0); MEAN CORPUSCULAR VOLUME 91 fL (80-96); MONOCYTES # (AUTO) 0.5 K/uL (0.1-1.30); MONOCYTES % (AUTO) 8.5 % (2.0-12.0); NEUTROPHILS # (AUTO) 3.4 K/uL (1.8-8.9); NEUTROPHILS % (AUTO) 59.8 % (43.0-81.0); PLATELET COUNT (AUTO) 233 K/uL (150-450); RED BLOOD CELL COUNT(AUTO) 4.29 MIL/uL (4.5-6.0); WHITE BLOOD COUNT (AUTO) 5.6 K/uL (4.3-11.0)
[2021-10-19 11:22] LABS: BILIRUBIN,URINE SMALL (NEGATIVE); COLOR,URINE YELLOW (YELLOW); LEUKOCYTE ESTERASE ,URINE NEGATIVE (NEGATIVE); NITRITE, URINE NEGATIVE (NEGATIVE); PH,URINE 5.5 (5.0-8.0); PROTEIN,URINE NEGATIVE (NEGATIVE); UGLUCOSE >=1000 mg/dL (NEGATIVE); UROBILINOGEN,URINE 0.2 EU/dL (0.2)
[2021-10-19 11:35] LABS: CALCIUM, SERUM 9.2 mg/dL (8.5-10.1); CARBON DIOXIDE 25 mmol/L (21-32); CHLORIDE 103 mmol/L (98-107); CREATININE 1.1 mg/dL (0.6-1.3); GLUCOSE 265 mg/dL (74-106); POTASSIUM 3.8 mmol/L (3.5-5.1); SODIUM SERUM 141 mmol/L (136-145); UREA NITROGEN, BLOOD 6 mg/dL (7-18)
[2021-10-19 11:40] LABS: ALANINE AMINOTRANSFERASE 32 U/L (12-78); ALCOHOL, BLOOD < 3 mg/dL (0-0); ALKALINE PHOSPHATASE 90 U/L (46-116); ASPARTATE AMINOTRANSFERASE 11 U/L (15-37); BILIRUBIN,DIRECT 0.1 mg/dL (0.0-0.2); BILIRUBIN,TOTAL 0.3 mg/dL (0.2-1.0); TOTAL PROTEIN, SERUM 7.6 g/dL (6.4-8.2)
[2021-10-19 11:41] LABS: BACTERIA,URINE Few /HPF (None Seen); RBC,URINE 0-2 /HPF (0-2)
[2021-10-19 11:43] LABS: ACETAMINOPHEN 0 ug/ml (10-30)
--- NOTE | 2021-10-19 14:00 | NUR ---
FAXED CLINICALS TO [facility].
[2021-10-19] MEDS ORDERED: INSULIN REGULAR, HUMAN 100 UNIT/ML 10 ML VIAL ONE (14:28)
[2021-10-19] MEDS ORDERED: OLANZAPINE 5 MG TABLET ONE (14:28)
[2021-10-19] MEDS ORDERED: OLANZAPINE 5 MG TABLET PO ONE (14:30)
[2021-10-19] MEDS ORDERED: INSULIN LISPRO/ASPART 100 UNIT/ML CARTRIDGE SQ ONE (14:30)
[2021-10-19] MEDS ORDERED: LEVETIRACETAM (250 MG) 250 MG TABLET PO ONE ×2 (15:00→15:04)
--- NOTE | 2021-10-19 16:07 | NUR ---
CALLED [facility], CLINICALS UNDER REVIEW.
--- NOTE | 2021-10-19 16:12 | NUR ---
PER ART OF [facility] PICKARD ACCEPTED UNDER DR ESPINOZA UNIT 2. NUMBER TO CALL FOR REPORT [phone] EXT [phone], FALAFEL CART COOK ETA PENDING.
[2021-10-19 16:40] VITALS: BP 127/71
--- NOTE | 2021-10-19 16:41 | NUR ---
Picked up by private transport going [place]. in no distress.
== END 2021-10-19 16:40 ==
LOC: ER 10:18
DX: F32.A Depression, unspecified (principal); E11.65 Type 2 diabetes mellitus with hyperglycemia; Z79.4 Long term (current) use of insulin; Z59.01 Sheltered homelessness; Z20.822 Contact with and (suspected) exposure to COVID-19; Z79.84 Long term (current) use of oral hypoglycemic drugs; Z79.899 Other long term (current) drug therapy; F20.9 Schizophrenia, unspecified; I10 Essential (primary) hypertension; G40.909 Epilepsy, unspecified, not intractable, without status epilepticus
CPT/HCPCS: 99285; 96372; 85025; 80048; 80076; 81001; 36415; 87426; 80143; 80320; 80307; J1815; C9803; G0480

== ENCOUNTER 2021-10-31 00:45 | Emergency (ER) | payer MEDICAID ==
[~2021-10-31] VITALS: Ht 175.3 cm; Wt 99.8 kg
--- NOTE | 2021-10-31 01:10 | NUR ---
URINE AND COVID SWAB DONE
[2021-10-31 01:25] LABS: BASOPHILS # (AUTO) 0.1 K/uL (0.0-0.2); BASOPHILS % (AUTO) 0.6 % (0.0-2.0); EOSINOPHILS % (AUTO) 1.8 % (0.0-6.0); HEMATOCRIT 42 % (39-51); HEMOGLOBIN 14.5 g/dL (13.5-17.5); LYMPHOCYTES # (AUTO) 2.2 K/uL (0.8-4.8); LYMPHOCYTES % (AUTO) 23.4 % (20.0-44.0); MEAN CORPUSCULAR HGB CONC 35 g/dl (31.0-36.0); MEAN CORPUSCULAR VOLUME 91 fL (80-96); MONOCYTES # (AUTO) 0.6 K/uL (0.1-1.30); MONOCYTES % (AUTO) 6.4 % (2.0-12.0); NEUTROPHILS # (AUTO) 6.5 K/uL (1.8-8.9); NEUTROPHILS % (AUTO) 67.8 % (43.0-81.0); PLATELET COUNT (AUTO) 264 K/uL (150-450); WHITE BLOOD COUNT (AUTO) 9.6 K/uL (4.3-11.0)
[2021-10-31 01:38] LABS: BILIRUBIN,URINE NEGATIVE (NEGATIVE); COLOR,URINE YELLOW (YELLOW); LEUKOCYTE ESTERASE ,URINE NEGATIVE (NEGATIVE); NITRITE, URINE NEGATIVE (NEGATIVE); PROTEIN,URINE NEGATIVE (NEGATIVE); UGLUCOSE 500 MG/DL mg/dL (NEGATIVE); UROBILINOGEN,URINE 0.2 EU/dL (0.2)
[2021-10-31 01:41] LABS: CALCIUM, SERUM 9.2 mg/dL (8.5-10.1); CREATININE 1.5 mg/dL (0.6-1.3); POTASSIUM 4.3 mmol/L (3.5-5.1)
[2021-10-31 01:52] LABS: ALBUMIN 4.3 g/dL (3.4-5.0); BILIRUBIN,DIRECT 0.1 mg/dL (0.0-0.2); BILIRUBIN,TOTAL 0.4 mg/dL (0.2-1.0); TOTAL PROTEIN, SERUM 8.1 g/dL (6.4-8.2)
--- NOTE | 2021-10-31 02:21 | NUR ---
FACESHEET AND CLINICALS FAXED TO [facility].
[2021-10-31] MEDS ORDERED: OLANZAPINE 5 MG TABLET PO ONE (03:00)
[2021-10-31] MEDS ORDERED: OLANZAPINE 5 MG TABLET ONE (03:04)
--- NOTE | 2021-10-31 06:27 | NUR ---
PER JUNE AT [facility] PATIENT GOT ACCEPTED AT [facility]. AWAING FOR DISCHARGES AND AVAILABLE BED
[2021-10-31 07:30] VITALS: BP 140/80
--- NOTE | 2021-10-31 09:13 | NUR ---
ACCEPTED AT [facility] UNDER DR HALE NUMBER FOR REPORT [phone] [phone]
--- NOTE | 2021-10-31 10:44 | NUR ---
report given to charge nurse sonny. transported in stable condition.
== END 2021-10-31 10:45 ==
LOC: ER 00:48
DX: R45.851 Suicidal ideations (principal); F10.129 Alcohol abuse with intoxication, unspecified; Y90.5 Blood alcohol level of 100-119 mg/100 ml; F20.9 Schizophrenia, unspecified; I10 Essential (primary) hypertension; E11.9 Type 2 diabetes mellitus without complications; Z79.84 Long term (current) use of oral hypoglycemic drugs; Z79.899 Other long term (current) drug therapy
CPT/HCPCS: 99285; 85025; 80048; 80076; 81003; 36415; 87426; 80143; 80320; 80307; C9803; G0480

== ENCOUNTER 2021-12-02 02:46 | Emergency (ER) | payer MEDICAID ==
[~2021-12-02] VITALS: Ht 175.3 cm; Wt 99.8 kg
[2021-12-02 03:49] VITALS: BP 117/83
--- NOTE | 2021-12-02 03:49 | NUR ---
BIBSELF FROM [facility] C/O SI xCOUPLE DAYS WITH NO PLAN. WANTS VOLUNTARY ADMIT TO PSYCH HOSP. PT A/OX4. TOLERATING R/A WELL WITH NO RESP DISTRESS. PT CHANGED IN GOWN, BELONGINGS COLLECTED AND PLACED IN LOCKER, AND WANDED BY SECURITY. SAFETY MEASURES IN PLACE.
--- NOTE | 2021-12-02 03:56 | NUR ---
URINE COLLECTED AND SENT TO LAB
--- NOTE | 2021-12-02 04:04 | NUR ---
COVID ANTIGEN SWAB COLLECTED AND SENT TO LAB
--- NOTE | 2021-12-02 04:11 | NUR ---
FRANCHISE BROKER AT PT'S BEDSIDE
[2021-12-02 04:27] LABS: BILIRUBIN,URINE NEGATIVE (NEGATIVE); COLOR,URINE YELLOW (YELLOW); LEUKOCYTE ESTERASE ,URINE NEGATIVE (NEGATIVE); NITRITE, URINE NEGATIVE (NEGATIVE); PH,URINE 5.5 (5.0-8.0); PROTEIN,URINE NEGATIVE (NEGATIVE); UGLUCOSE NEGATIVE (NEGATIVE); UROBILINOGEN,URINE 0.2 EU/dL (0.2)
[2021-12-02 04:28] LABS: BASOPHILS % (AUTO) 0.2 % (0.0-2.0); EOSINOPHILS % (AUTO) 1.2 % (0.0-6.0); HEMATOCRIT 39 % (39-51); HEMOGLOBIN 13.2 g/dL (13.5-17.5); LYMPHOCYTES # (AUTO) 1.5 K/uL (0.8-4.8); MEAN CORPUSCULAR HGB CONC 34 g/dl (31.0-36.0); MEAN CORPUSCULAR VOLUME 91 fL (80-96); MONOCYTES # (AUTO) 0.8 K/uL (0.1-1.30); MONOCYTES % (AUTO) 7.5 % (2.0-12.0); NEUTROPHILS # (AUTO) 7.8 K/uL (1.8-8.9); NEUTROPHILS % (AUTO) 76.1 % (43.0-81.0); PLATELET COUNT (AUTO) 308 K/uL (150-450); RED BLOOD CELL COUNT(AUTO) 4.29 MIL/uL (4.5-6.0); WHITE BLOOD COUNT (AUTO) 10.3 K/uL (4.3-11.0)
[2021-12-02 04:40] LABS: ALBUMIN 3.6 g/dL (3.4-5.0); BILIRUBIN,DIRECT 0.1 mg/dL (0.0-0.2); BILIRUBIN,TOTAL 0.4 mg/dL (0.2-1.0); CREATININE 1.2 mg/dL (0.6-1.3); POTASSIUM 4.1 mmol/L (3.5-5.1); TOTAL PROTEIN, SERUM 7.9 g/dL (6.4-8.2)
--- NOTE | 2021-12-02 05:25 | NUR ---
FACESHEET AND CLINICALS FAXED TO [facility].
--- NOTE | 2021-12-02 08:30 | NUR ---
CALLED [facility] UNDER REVIEW AND WILL CALL US BACK.
--- NOTE | 2021-12-02 10:37 | NUR ---
PT A/O X4, VERBALLY RESPONSIVE AND ABLE TO MAKE NEEDS KNOWN, NOT IN ACUTE DISTRESS. AMBUALTORY W/ STEADY GAIT, PROVIDED ASSISTANCE NEEDED.
--- NOTE | 2021-12-02 16:35 | NUR ---
PT ACCEPTED TO [facility] UNDER DR. ESPINOZA. CALL [phone] FOR REPORT, SENIOR PRODUCT MARKETING MANAGER ETA 1700.
== END 2021-12-02 19:05 ==
LOC: ER 02:49
DX: R45.851 Suicidal ideations (principal); F19.10 Other psychoactive substance abuse, uncomplicated; Z20.822 Contact with and (suspected) exposure to COVID-19; F20.9 Schizophrenia, unspecified; E11.9 Type 2 diabetes mellitus without complications; Z79.4 Long term (current) use of insulin; I10 Essential (primary) hypertension; F41.1 Generalized anxiety disorder; F43.10 Post-traumatic stress disorder, unspecified; F32.A Depression, unspecified; Z79.899 Other long term (current) drug therapy; Z79.84 Long term (current) use of oral hypoglycemic drugs
CPT/HCPCS: 99285; 85025; 80048; 80076; 81003; 36415; 87426; 80143; 80320; 80307; C9803; G0480